=== PATIENT | female | born 1990 | race Caucasian/White ===

== ENCOUNTER 2016-07-24 10:58 | Inpatient (IN) | payer OTHER ==
[~2016-07-24] VITALS: Ht 154.9 cm; Wt 72.5 kg
[~2016-07-24 10:58] MED LIST: PRENAT PO
[2016-07-24 11:19] VITALS: Ht 154.9 cm; Wt 72.5 kg
--- NOTE | 2016-07-24 12:00 | RADRPT ---
PROCEDURE: US OB. CLINICAL INDICATION: Liver TECHNIQUE: Multiple sonographic images of the pelvis were obtained. The images were reviewed on a PACS workstation. COMPARISON: No prior studies are available for comparison. FINDINGS: There is a single viable intrauterine gestation. Cardiac activity is present with 140 beats per min wes. There is a breech presentation. Measurements were made in order to determine age. The results are as follows: BPD =36 weeks 6 days' HC =38 weeks 6 days AC =39 weeks 0 days FL =36 weeks 0 days. Estimated gestational age of approximately 37 weeks 5 days. The estimated date of delivery is 08/09/2016. The EFW = 3386 g 46% . The placenta is fundal. There is no evidence for an abruption. There is a normal amount of amniotic fluid with an PARISH = 9.3 cm. IMPRESSION: Single viable intrauterine gestation of approximately 37 weeks 5 days. The estimated date of delive ry is 08/09/2016 Breech presentation . .John Lwe MD, MD Date Time Electronically viewed and signed by .John Lew MD, on 07/24/2016 12:00 .W/
[2016-07-24] MEDS ORDERED: OXYTOCIN 30 UNITS/LR 500 ML IV SCH (12:30)
[2016-07-24] MEDS ORDERED: CEFAZOLIN 2 GM/50 ML (PMX) 50 ML IV SCH (12:30)
[2016-07-24] MEDS ORDERED: OXYTOCIN 30 UNITS/LR 500 ML IV PRN ×2 (12:30→21:30)
[2016-07-24] MEDS ORDERED: METHYLERGONOVINE 0.2 MG INJ IM PRN ×2 (12:30→21:30)
[2016-07-24] MEDS ORDERED: MISOPROSTOL 200 MCG TAB PR PRN ×2 (12:30→21:30)
[2016-07-24] MEDS ORDERED: CARBOPROST 250 MCG INJ IM PRN ×2 (12:30→21:30)
[2016-07-24] MEDS: LACTATED RINGER'S 1,000 ML IV SCH ×2 (14:29→17:47)
[2016-07-24 14:34] LABS: BASOPHILS % 0.4 % (0.0-2.0); EOSINOPHILS % 0.4 % (0.0-7.0); HEMATOCRIT 35.5 % (37.0-47.0); HEMOGLOBIN 12.1 g/dl (12.0-16.0); LYMPHOCYTES % 18.3 % (15.0-51.0); MEAN CORPUSCULAR HEMOGLOBIN 29.8 pg (29.0-33.0); MEAN CORPUSCULAR HGB CONC 34.1 g/dl (32.0-37.0); MEAN CORPUSCULAR VOLUME 87.4 fl (82.0-101.0); MEAN PLATELET VOLUME 11.3 fl (7.4-10.4); MONOCYTE # 0.6 10^3/ul (0.3-0.9); MONOCYTES % 5.4 % (0.0-11.0); NEUTROPHIL # 8.4 10^3/ul (1.6-7.5); NEUTROPHILS % 75.5 % (39.0-77.0); PLATELET COUNT 179 10^3/UL (140-440); RED BLOOD COUNT 4.06 10^6/ul (4.20-5.40); RED CELL DISTRIBUTION WIDTH 13.4 % (11.5-14.5); UNCORRECTED WBC 11.1 10^3/ul (4.8-10.8); WHITE BLOOD COUNT 11.1 10^3/ul (4.8-10.8)
[2016-07-24 14:41] LABS: CONDITION 1
[2016-07-24 14:46] LABS: INR 0.83; PARTIAL THROMBOPLASTIN TIME 26.7 Sec (25.0-35.0); PROTIME 11.4 Sec (12.2-14.2); PT RATIO 0.9
[2016-07-24 16:03] VITALS: BP 111/64; PULSE 102; RESP 20
[2016-07-24] MEDS ORDERED: FENTAnyl 50 MCG/ML VIAL ONE (18:03)
[2016-07-24] MEDS ORDERED: morphine SULFATE/PF (10 MG/10 ML) INJ ONE (18:03)
[2016-07-24] MEDS ORDERED: EPHEDrine SULFATE 50 MG/5 ML SYG ONE (18:14)
--- NOTE | 2016-07-24 18:34 | PREOPHP ---
DATE OF ADMISSION: 07/24/2016 HISTORY: A 26-year-old female 2, para 1, estimated date of delivery , at 39 weeks' gestation, presents with term presented with labor contractions. PAST SURGICAL HISTORY: Unremarkable. ALLERGIES: NO KNOWN DRUG ALLERGIES. FAMILY HISTORY: Noncontributory. PHYSICAL EXAMINATION: VITAL SIGNS: Patient is afebrile. Vital signs stable. HEAD, NECK, AND CHEST: Within normal limits. ABDOMEN: Soft, nontender, and gravid. EXTREMITIES: Within normal limits. NEUROLOGIC: Within normal limits. Obstetric ultrasound revealed breech presentation. IMPRESSION: at 39 weeks with labor contractions and breech presentation. PLAN: Delivery by primary section. Risks, benefits, and alternatives of the procedure were explained to the patient. The patient said she understood and gave informed consent for the procedure. Dictated By: SOLOMON RODRÍGUEZ/YANDY Conf#: [id number] DID#: [id number] MTDD
[2016-07-24] MEDS ORDERED: KETOROLAC 30 MG INJ IV PRN (19:00)
[2016-07-24] MEDS ORDERED: HYDROmorphONE 1 MG/ML SYG IV PRN ×2 (19:00)
[2016-07-24] MEDS ORDERED: NALOXONE (0.4 MG/ML) INJ IV PRN (19:00)
[2016-07-24] MEDS ORDERED: ZOLPIDEM 5 MG TAB PO PRN (19:00)
[2016-07-24] MEDS ORDERED: DIPHENHYDRAMINE 50 MG INJ IV PRN (19:00)
--- NOTE | 2016-07-24 19:49 | OPR ---
DATE OF OPERATION: 07/24/2016 PREOPERATIVE DIAGNOSIS: at 39 weeks with breech presentation. POSTOPERATIVE DIAGNOSES: at 39 weeks with breech presentation. OPERATION PERFORMED: Primary low transverse section. SURGEON: Solomon López MD [employer] T[employer]ER: Kevon Chung MD ANESTHESIA: Spinal. ANESTHESIOLOGIST: Dr. Ramirez. PROCEDURE: The patient was taken to the operating room and placed on the operating table. After godoy ccessful spinal anesthesia was given, the patient was placed in supine position. The area was prepa red and draped in the usual sterile fashion. Spinal anesthesia was tested and was satisfactory. Us ing a scalpel, Pfannenstiel incision was made about 2 fingerbreadths above the symphysis pubis. The incision was carried to the fascia. The fascia was incised and extended bilaterally with Vargas scis sors. Two Kochers were used to separate the fascia from the muscle. The muscle was dissected down to peritoneum. The peritoneum was bluntly entered. Using a scalpel, a small transverse incision wa s made on the lower segment of the uterus. Upon entering the uterine cavity, bandage scissors were inserted to extend the incision bilaterally, curved up. Baby was delivered from right sacral anteri or position. After suctioning clear of amniotic fluid, the baby was handed off to the team in attendance. Apgars were 9 and 9. The placenta was delivered without difficulty. Uterus was cl osed with #1 Monocryl continuous locked. After assuring hemostasis, both ovaries and tubes were ins pected, all looked normal. The peritoneal cavity was irrigated with warm saline. The peritoneum wa s closed with 2-0 Vicryl continuous. The fascia was closed with #1 Vicryl continuous in 2 segments. Subcutaneous tissue was reapproximated with 2-0 plain. The skin was closed with sumeet. ESTIMATED BLOOD LOSS: 500 mL. COMPLICATIONS: None. COUNTS: All counts were correct. Dictated By: SOLOMON LÓPEZ MD GD/NTS Conf#: [id number] DID#: [id number]
[2016-07-24] MEDS: ONDANSETRON 4 MG INJ IV PRN (20:55)
[2016-07-24 21:20] VITALS: BP 117/64; PULSE 70; RESP 17
[2016-07-24] MEDS ORDERED: OXYCODONE/ACETAMINOPHEN (5/325) TAB PO PRN (21:30)
[2016-07-24] MEDS ORDERED: LANOLIN 7 GM TUBE TOP PRN (21:30)
[2016-07-24 22:00] VITALS: BP 102/52; RESP 18
[2016-07-24] MEDS: OXYTOCIN 30 UNITS/LR 500 ML IV SCH (23:53)
[2016-07-25] VITALS: BP 90/49; RESP 17
[2016-07-25 03:32] VITALS: BP 96/46; RESP 18
[2016-07-25] MEDS: ONDANSETRON 4 MG INJ IV PRN (03:32)
[2016-07-25] MEDS: LACTATED RINGER'S 1,000 ML IV SCH ×4 (03:33→13:05)
[2016-07-25 08:00] VITALS: BP 108/49; PULSE 86; RESP 20
[2016-07-25] MEDS: OXYTOCIN 30 UNITS/LR 500 ML IV SCH (08:00)
[2016-07-25 09:56] LABS: EOSINOPHILS % 0.2 % (0.0-7.0); HEMATOCRIT 30.7 % (37.0-47.0); HEMOGLOBIN 10.6 g/dl (12.0-16.0); LYMPHOCYTES # 1.2 10^3/ul (0.8-2.9); LYMPHOCYTES % 8.3 % (15.0-51.0); MEAN CORPUSCULAR HEMOGLOBIN 30.1 pg (29.0-33.0); MEAN CORPUSCULAR HGB CONC 34.5 g/dl (32.0-37.0); MEAN CORPUSCULAR VOLUME 87.4 fl (82.0-101.0); MEAN PLATELET VOLUME 11.9 fl (7.4-10.4); MONOCYTE # 0.6 10^3/ul (0.3-0.9); MONOCYTES % 4.3 % (0.0-11.0); NEUTROPHIL # 12.8 10^3/ul (1.6-7.5); NEUTROPHILS % 87.2 % (39.0-77.0); PLATELET COUNT 141 10^3/UL (140-440); RED BLOOD COUNT 3.51 10^6/ul (4.20-5.40); RED CELL DISTRIBUTION WIDTH 13.4 % (11.5-14.5); UNCORRECTED WBC 14.6 10^3/ul (4.8-10.8); WHITE BLOOD COUNT 14.6 10^3/ul (4.8-10.8)
[2016-07-25 10:14] LABS: CONDITION 1
[2016-07-25 12:08] VITALS: BP 112/52; PULSE 90; RESP 20
--- NOTE | 2016-07-25 14:11 | QN ---
Documentation Comment No complaint Afebrile VSS Abdomen soft POD #1 Stable Ambulate Advance diet. SOLOMON ALMEIDA MD Jul 25, 2016 14:11
[2016-07-25 15:41] VITALS: BP 100/54; PULSE 75; RESP 20
[2016-07-25 19:30] VITALS: BP 96/55; PULSE 93; RESP 18
[2016-07-25] MEDS: SENNA/DOCUSATE NA (8.6MG/50MG) TAB PO SCH (20:53)
[2016-07-25] MEDS: IBUPROFEN 800 MG TAB PO SCH (22:00)
[2016-07-25] MEDS: OXYCODONE/ACETAMINOPHEN (5/325) TAB PO PRN (23:42)
[2016-07-26 03:59] VITALS: BP 99/56; PULSE 80; RESP 18
[2016-07-26] MEDS: IBUPROFEN 800 MG TAB PO SCH ×3 (05:50→21:31)
[2016-07-26] MEDS: LACTATED RINGER'S 1,000 ML IV SCH ×2 (07:01→13:05)
[2016-07-26 08:00] VITALS: BP 99/71; PULSE 75; RESP 18
[2016-07-26] MEDS: SENNA/DOCUSATE NA (8.6MG/50MG) TAB PO SCH ×2 (08:58→21:31)
[2016-07-26 20:10] VITALS: BP 91/52; PULSE 81; RESP 18
--- NOTE | 2016-07-26 21:55 | DS ---
DATE OF ADMISSION: 07/24/2016 DATE OF DISCHARGE: ADMITTING DIAGNOSES: at 39 weeks with breech presentation. HISTORY OF PRESENT ILLNESS: A 26-year-old female 2, para 1 at admission, para 2 at time of discharge with term , presented with contractions. OB ultrasound revealed breech presentat ion. On 07/24/2016 after obtaining consent, the patient underwent a primary low transverse section. Patient's operation was uncomplicated. Postoperatively, patient was given clear liquid d iet, which was advanced to regular diet, which she tolerated well. The patient is discharged on pos top day #3 after having had adequate bladder and bowel function. CONDITION ON DISCHARGE: Stable. DISCHARGE INSTRUCTIONS: DIET: Regular. ACTIVITIES: Pelvic rest and no strenuous activities. MEDICATIONS: Motrin as needed for pain. Continue with vitamins and ferrous sulfate. Follow up in clinic in 1 week. FINAL DIAGNOSES: 1. Term delivered by section. 2. Breech presentation. 3. Mother with single liveborn. Dictated By: SOLOMON RODRÍGUEZ/YANDY Conf#: [id number] DID#: [id number]
[2016-07-27] MEDS: IBUPROFEN 800 MG TAB PO SCH ×2 (05:36→14:17)
[2016-07-27 07:30] VITALS: BP 91/54; PULSE 77; RESP 18
[2016-07-27] MEDS ORDERED: DIPHTH/TET/ACEL PERTUSS (ADULT) 0.5 ML VIAL IM* ONE (09:00)
[2016-07-27] MEDS: SENNA/DOCUSATE NA (8.6MG/50MG) TAB PO SCH (09:24)
[2016-07-27 15:45] VITALS: BP 92/53; PULSE 73; RESP 17
[2016-07-27] MEDS: OXYCODONE/ACETAMINOPHEN (5/325) TAB PO PRN (16:44)
--- NOTE | 2016-07-27 18:38 | DS ---
Date/Time of Note Date/Time of Note DATE: 07/27/16 TIME: 18:33 Obstetrical Discharge Record Final Diagnosis Final Diagnosis: Term delivered Other Final Diagnosis Post C section day 3 Patient is doing well, Ambulatory She is afebrile Abdomen is soft , Fundus is firm Moderate amount of lochia Breasts are soft, Nipples are intact No calf tenderness. Incision is healing well. Breast feeding the new born. Current Medications Medications (Trade) Dose Ordered Sig/Robby Route PRN Reason Start Time Stop Time Status Last Admin Dose Admin Lactated Ringer's 1,000 ml @ 125 mls/hr Q8H IV 07/24/16 12:24 07/24/16 21:13 DC 07/24/16 17:47 Cefazolin Sodium/ Dextrose 50 ml @ 100 mls/hr ONCE IV 07/24/16 12:30 07/24/16 21:14 DC Oxytocin/Lactated Ringer's 500 ml @ 125 mls/hr ONCE IV 07/24/16 12:30 07/24/16 21:14 DC Oxytocin/Lactated Ringer's 500 ml @ 0 mls/hr ONCE PRN IV For Hemorrhage Management 07/24/16 12:30 07/24/16 21:14 DC Methylergonovine Maleate (Methergine) 0.2 mg ONCE PRN IM VAGINAL BLEEDING 07/24/16 12:30 07/24/16 21:14 DC Carboprost Tromethamine (Hemabate) 250 mcg ONCE PRN IM VAGINAL BLEEDING 07/24/16 12:30 07/24/16 21:14 DC Misoprostol (Cytotec) 1,000 mcg ONCE PRN CO VAGINAL BLEEDING 07/24/16 12:30 07/24/16 21:14 DC Morphine Sulfate (Duramorph) 10 mg STK-MED ONCE .ROUTE 07/24/16 18:03 07/24/16 18:04 DC Fentanyl (Sublimaze) 100 mcg STK-MED ONCE .ROUTE 07/24/16 18:03 07/24/16 18:04 DC Ephedrine Sulfate 50 mg STK-MED ONCE .ROUTE 07/24/16 18:14 07/24/16 18:15 DC Naloxone HCl (Narcan) 0.1 mg Q2M PRN IV FOR RESP RATE 8 OR LESS 07/24/16 19:00 07/25/16 18:59 DC Ketorolac Tromethamine (Toradol) 30 mg Q6H PRN IV PAIN 07/24/16 19:00 07/25/16 18:59 DC 07/25/16 17:57 Hydromorphone HCl (Dilaudid) 0.2 mg Q3H PRN IV PAIN LEVEL 1-5 07/24/16 19:00 07/25/16 18:59 DC Hydromorphone HCl (Dilaudid) 0.4 mg Q3H PRN IV PAIN LEVEL 6-10 07/24/16 19:00 07/25/16 18:59 DC Diphenhydramine HCl (Benadryl) 25 mg Q6H PRN IV ITCHING 07/24/16 19:00 07/25/16 18:59 DC Ondansetron HCl (Zofran Inj) 4 mg Q6H PRN IV NAUSEA AND/OR VOMITING 07/24/16 19:00 07/25/16 18:59 DC 07/25/16 03:32 Zolpidem Tartrate (Ambien) 5 mg HS MAY REPEAT X 1 PRN PO INSOMNIA 07/24/16 19:00 07/25/16 18:59 DC Miscellaneous Information Duramorph: .3 mg Spi... GIVEN XX 07/24/16 19:00 07/24/16 21:13 DC Lactated Ringer's 1,000 ml @ 125 mls/hr Q8H IV 07/24/16 21:05 07/26/16 14:53 DC 07/25/16 10:57 Oxytocin/Lactated Ringer's 500 ml @ 125 mls/hr Q4H IV 07/24/16 21:05 07/25/16 05:04 DC 07/24/16 23:53 Oxycodone/ Acetaminophen (Percocet (5/ 325)) 1 tab Q4H PRN PO PAIN LEVEL 4-6 07/24/16 21:30 Oxycodone/ Acetaminophen (Percocet (5/ 325)) 2 tab Q4H PRN PO PAIN LEVEL 7-10 07/24/16 21:30 07/27/16 16:44 Ibuprofen (Motrin) 800 mg Q8 PO 07/25/16 22:00 07/27/16 14:17 Simethicone (Mylicon) 160 mg Q8H PRN PO DISTENSION/GAS/BLOATING 07/24/16 21:30 Senna/Docusate Sodium (Senokot-S) 1 tab BID PO 07/25/16 21:00 07/27/16 09:24 Lanolin ([id number]) 1 applic BEDSIDE MEDICATION PRN TOP BEDSIDE FOR MANJINDER TO NIPPLES 07/24/16 21:30 07/25/16 16:26 Diphtheria/ Tetanus/Acell Pertussis 0.5 ml 0.5 ml ONCE ONCE IM* 07/27/16 09:00 07/27/16 09:01 DC Oxytocin/Lactated Ringer's 500 ml @ 0 mls/hr ONCE PRN IV For Hemorrhage Management 07/24/16 21:30 Methylergonovine Maleate (Methergine) 0.2 mg ONCE PRN IM VAGINAL BLEEDING 07/24/16 21:30 Carboprost Tromethamine (Hemabate) 250 mcg ONCE PRN IM VAGINAL BLEEDING 07/24/16 21:30 Misoprostol (Cytotec) 1,000 mcg ONCE PRN CO VAGINAL BLEEDING 07/24/16 21:30 Section Section: Primary Condition on Discharge Physical Assessment Voiding: Yes Fundus: Firm Abdomen and Incision: clean Current Medications Medications (Trade) Dose Ordered Sig/Robby Route PRN Reason Start Time Stop Time Status Last Admin Dose Admin Lactated Ringer's 1,000 ml @ 125 mls/hr Q8H IV 07/24/16 12:24 07/24/16 21:13 DC 07/24/16 17:47 Cefazolin Sodium/ Dextrose 50 ml @ 100 mls/hr ONCE IV 07/24/16 12:30 07/24/16 21:14 DC Oxytocin/Lactated Ringer's 500 ml @ 125 mls/hr ONCE IV 07/24/16 12:30 07/24/16 21:14 DC Oxytocin/Lactated Ringer's 500 ml @ 0 mls/hr ONCE PRN IV For Hemorrhage Management 07/24/16 12:30 07/24/16 21:14 DC Methylergonovine Maleate (Methergine) 0.2 mg ONCE PRN IM VAGINAL BLEEDING 07/24/16 12:30 07/24/16 21:14 DC Carboprost Tromethamine (Hemabate) 250 mcg ONCE PRN IM VAGINAL BLEEDING 2/20/17 12:30 07/24/16 21:14 DC Misoprostol (Cytotec) 1,000 mcg ONCE PRN CO VAGINAL BLEEDING 07/24/16 12:30 07/24/16 21:14 DC Morphine Sulfate (Duramorph) 10 mg STK-MED ONCE .ROUTE 07/24/16 18:03 07/24/16 18:04 DC Fentanyl (Sublimaze) 100 mcg STK-MED ONCE .ROUTE 07/24/16 18:03 07/24/16 18:04 DC Ephedrine Sulfate 50 mg STK-MED ONCE .ROUTE 07/24/16 18:14 07/24/16 18:15 DC Naloxone HCl (Narcan) 0.1 mg Q2M PRN IV FOR RESP RATE 8 OR LESS 07/24/16 19:00 07/25/16 18:59 DC Ketorolac Tromethamine (Toradol) 30 mg Q6H PRN IV PAIN 07/24/16 19:00 07/25/16 18:59 DC 07/25/16 17:57 Hydromorphone HCl (Dilaudid) 0.2 mg Q3H PRN IV PAIN LEVEL 1-5 07/24/16 19:00 07/25/16 18:59 DC Hydromorphone HCl (Dilaudid) 0.4 mg Q3H PRN IV PAIN LEVEL 6-10 07/24/16 19:00 07/25/16 18:59 DC Diphenhydramine HCl (Benadryl) 25 mg Q6H PRN IV ITCHING 07/24/16 19:00 07/25/16 18:59 DC Ondansetron HCl (Zofran Inj) 4 mg Q6H PRN IV NAUSEA AND/OR VOMITING 07/24/16 19:00 07/25/16 18:59 DC 07/25/16 03:32 Zolpidem Tartrate (Ambien) 5 mg HS MAY REPEAT X 1 PRN PO INSOMNIA 07/24/16 19:00 07/25/16 18:59 DC Miscellaneous Information Duramorph: .3 mg Spi... GIVEN XX 07/24/16 19:00 07/24/16 21:13 DC Lactated Ringer's 1,000 ml @ 125 mls/hr Q8H IV 07/24/16 21:05 07/26/16 14:53 DC 07/25/16 10:57 Oxytocin/Lactated Ringer's 500 ml @ 125 mls/hr Q4H IV 07/24/16 21:05 07/25/16 05:04 DC 07/24/16 23:53 Oxycodone/ Acetaminophen (Percocet (5/ 325)) 1 tab Q4H PRN PO PAIN LEVEL 4-6 07/24/16 21:30 Oxycodone/ Acetaminophen (Percocet (5/ 325)) 2 tab Q4H PRN PO PAIN LEVEL 7-10 07/24/16 21:30 07/27/16 16:44 Ibuprofen (Motrin) 800 mg Q8 PO 07/25/16 22:00 07/27/16 14:17 Simethicone (Mylicon) 160 mg Q8H PRN PO DISTENSION/GAS/BLOATING 07/24/16 21:30 Senna/Docusate Sodium (Senokot-S) 1 tab BID PO 07/25/16 21:00 07/27/16 09:24 Lanolin ([id number]-A-Unebsd) 1 applic BEDSIDE MEDICATION PRN TOP BEDSIDE FOR MANJINDER TO NIPPLES 07/24/16 21:30 07/25/16 16:26 Diphtheria/ Tetanus/Acell Pertussis 0.5 ml 0.5 ml ONCE ONCE IM* 07/27/16 09:00 07/27/16 09:01 DC Oxytocin/Lactated Ringer's 500 ml @ 0 mls/hr ONCE PRN IV For Hemorrhage Management 07/24/16 21:30 Methylergonovine Maleate (Methergine) 0.2 mg ONCE PRN IM VAGINAL BLEEDING 07/24/16 21:30 Carboprost Tromethamine (Hemabate) 250 mcg ONCE PRN IM VAGINAL BLEEDING 07/24/16 21:30 Misoprostol (Cytotec) 1,000 mcg ONCE PRN CO VAGINAL BLEEDING 07/24/16 21:30 Calf Tenderness: No Patient Condition: Good MIGUEL RAMOS MD Jul 27, 2016 18:38
== END 2016-07-27 19:50 | disposition home or self-care (01) | DRG 766 ==
LOC: L-D 10:58 → OBT 10:58 → L-D 13:20 → PP1 21:41
PROVIDERS: ADMIT Obstetrics & Gynecology; ATTEND Obstetrics & Gynecology
PROC: 10D00Z1 Extraction of Products of Conception, Low, Open Approach (ICD-10-PCS; principal; 2016-07-24 18:00)
DX: O32.1XX0 Maternal care for breech presentation, not applicable or unspecified (principal); Z37.0 Single live birth; Z3A.39 39 weeks gestation of pregnancy
CPT/HCPCS: 76815; 85025; 85610; 85730; 86592; 86850; 86900; 86901; 87340; 90715; 94760; G0463; J0690; J1885; J2274; J2405; J2590; J3010; J7120

== ENCOUNTER 2017-08-17 19:34 | Emergency (ER) | END 2017-08-17 22:58 | disposition home or self-care (01) ==